=== PATIENT | male | born 1980 | race Hispanic/Latino ===

== ENCOUNTER 2018-10-26 08:36 | Emergency (ER) | payer BC, OTHER ==
--- NOTE | 2018-10-26 10:36 | ULT ---
LEFT LOWER EXTREMITY VENOUS DOPPLER DUPLEX ULTRASOUND: CPT: 35932 ICD-10-PCS: B54D INDICATIONS: Left lower extremity ecchymosis. Injury with pain. TECHNIQUE: Color-flow Doppler, spectral wave-form analysis of pulsed Doppler, and steinberg-scale imaging with compre ssion and augmentation, were used to evaluate the bilateral common femoral, femoral, popliteal, poste rior tibial, and superficial femoral veins, and the proximal portions of the profunda femoral and gre ater saphenous veins. FINDINGS: There is appropriate compressibility and flow within the imaged deep vein system of the left lower ex tremity. IMPRESSION: No deep venous thrombosis. POS: [facility]
== END 2018-10-26 10:30 | disposition home or self-care (01) ==
LOC: SCSER 08:36
DX: S80.12XA Contusion of left lower leg, initial encounter (principal); Z79.82 Long term (current) use of aspirin; X50.9XXA Other and unspecified overexertion or strenuous movements or postures, initial encounter